=== PATIENT | female | born 1995 | race Caucasian/White ===

== ENCOUNTER 2019-04-17 21:33 | Emergency (ER) | payer SELFPAY ==
[~2019-04-17] VITALS: Ht 149.9 cm; Wt 38.6 kg
[2019-04-17 21:39] VITALS: BP 109/60
--- NOTE | 2019-04-17 21:42 | NUR ---
TO LOBBY A/W BED AMBULATORY
--- NOTE | 2019-04-17 23:00 | NUR ---
PT AMBULATED TO BED 10
--- NOTE | 2019-04-17 23:05 | NUR ---
23/F PRESENTED TO ED WITH C/O ABD PAIN SINCE 1400 TODAY. STATES 0/10 PAIN AT THIS TIME. STATES PAIN PROVOKED BY STANDING. DESCRIBED CRAMPING. +N -V/D. NO FEVER. TOOK MOTRIN PRIOR TO ARRIVING BUT NO RELIEF. BOWEL SOUNDS ACTIVE IN ALL 4 QUADRANTS. SOFT NON TENDER. PAST MED HX ANEMIA. DENIES RX. DENIES ALLERGIES.
[2019-04-17] MEDS ORDERED: KETOROLAC 60 MG/2 ML VIAL IM ONE (23:30)
--- NOTE | 2019-04-18 00:49 | NUR ---
Dr. Brown examining patient.
[2019-04-18 00:57] VITALS: BP 116/64
== END 2019-04-18 00:57 | disposition home or self-care (01) ==
LOC: MED 21:33
DX: R10.30 Lower abdominal pain, unspecified (principal); Z86.2 Personal history of diseases of the blood and blood-forming organs and certain disorders involving the immune mechanism; Z98.890 Other specified postprocedural states
CPT/HCPCS: 96372; 99283; J1885